=== PATIENT | female | born 2000 | race Caucasian/White ===

== ENCOUNTER 2019-10-20 14:07 | Emergency (ER) | payer OTHER ==
[~2019-10-20] VITALS: Ht 172.7 cm; Wt 86.6 kg
[2019-10-20 14:15] VITALS: Ht 172.7 cm; Wt 86.6 kg
[2019-10-20 15:10] VITALS: BP 140/77
== END 2019-10-20 15:26 | disposition home or self-care (01) ==
LOC: ED 14:07
DX: O9A.212 Injury, poisoning and certain other consequences of external causes complicating pregnancy, second trimester (principal); Z3A.33 33 weeks gestation of pregnancy; Z88.0 Allergy status to penicillin